=== PATIENT | female | born 1960 | race Caucasian/White ===

== ENCOUNTER → 2016-09-03 | Outpatient (CLI) | payer OTHER ==
--- NOTE | 2016-09-05 10:14 | MM ---
Reason for exam: screening (asymptomatic). Last mammogram was performed 1 year and 1 month ago. History: Patient is postmenopausal. Family history of breast cancer in mother at age 70. Benign left mammotome panel of the left breast, May 16, 2010. Physical Findings: A clinical breast exam by your physician is recommended on an annual basis and results should be correlated with mammographic findings. MG Screening Mammo w CAD Bilateral CC and MLO view(s) were taken. Prior study comparison: August 02, 2015, bilateral MG screening mammo w CAD. June 14, 2014, bilateral MG screening mammo w CAD. June 02, 2013, bilateral digital screening mammo w/CAD. May 14, 2012, CAD bilateral diagnostic mammogram. May 02, 2011, bilateral digital screening mammo w/CAD. There are scattered fibroglandular densities. Previous mammotome biopsy in the left breast. There is chronic nodularity in the left breast. No significant changes when compared with prior studies. ASSESSMENT: Negative, BI-RAD 1 RECOMMENDATION: Routine screening mammogram of both breasts in 1 year.
== END | disposition home or self-care (01) ==
LOC: RADMAMWWP 16:31
PROVIDERS: ATTEND Internal Medicine
DX: Z12.31 Encounter for screening mammogram for malignant neoplasm of breast (principal)

== ENCOUNTER 2016-10-27 10:37 | Observation (INO) | payer OTHER ==
[2016-10-27] MEDS ORDERED: SODIUM CHLORIDE 0.9% 1,000 ML IV STA (11:44)
[2016-10-27] MEDS ORDERED: NITROGLYCERIN OINT 1 INCH/GM PACKET TOPICAL STA (11:44)
[2016-10-27] MEDS ORDERED: MORPHINE SULFATE 2 MG/ML SYRINGE IVP STA (11:44)
[2016-10-27 12:39] LABS: Basophils % (A) 0 %; CH 31.8; CHCM 34.8; Eosinophils # (A) 0.2 k/uL (0-0.7); Eosinophils % (A) 2 %; HCT 40.5 % (34.0-46.0); HDW 2.59; HGB 13.7 gm/dL (11.4-16.0); Luc # (Auto) 0.22; Luc % (Auto) 2; Lymphocytes # (A) 1.9 k/uL (1.0-4.8); Lymphocytes % (A) 19 %; MCHC 33.8 g/dL (31.0-37.0); MCV 91.9 fL (80.0-100.0); Mean Platelet Volume 6.7; Monocytes # (A) 0.5 k/uL (0-1.0); Monocytes % (A) 5 %; Neutrophils # (A) 7.2 k/uL (1.3-7.7); Neutrophils % (A) 72 %; RBC 4.41 m/uL (3.80-5.40); RDW 13.1 % (11.5-15.5); WBC (Perox) 9.96
--- NOTE | 2016-10-27 12:48 | XR ---
EXAMINATION TYPE: XR chest 2V DATE OF EXAM: 10/27/2016 12:43 PM COMPARISON: NONE TECHNIQUE: PA and lateral views submitted. HISTORY: Chest pain FINDINGS: The lungs are clear and there is no pneumothorax, pleural effusion, or focal pneumonia. Heart demon strates borderline cardiac enlargement. IMPRESSION: 1. No acute process.
[2016-10-27 12:50] LABS: ALT 30 U/L (9-52); AST 18 U/L (14-36); Alkaline Phosphatase 88 U/L (38-126); Anion Gap 12 mmol/L; Blood Urea Nitrogen 19 mg/dL (7-17); Calcium 9.4 mg/dL (8.4-10.2); Carbon Dioxide 29 mmol/L (22-30); Chloride 102 mmol/L (98-107); Glucose 80 mg/dL (74-99); Non-African American GFR(MDRD) >60 (>60 ml/min/1.73 sqM); Potassium 4.5 mmol/L (3.5-5.1); Sodium 143 mmol/L (137-145); Total Bilirubin 0.9 mg/dL (0.2-1.3); Total Protein 6.8 g/dL (6.3-8.2)
[2016-10-27 12:56] LABS: Prothrombin Time 10.2 sec (9.0-12.0)
[2016-10-27 13:05] LABS: Creatine Kinase 45 U/L (30-135)
[2016-10-27 13:17] LABS: Creatine Kinase MB 0.3 ng/mL (0.0-2.4); Troponin I <0.012 ng/mL (0.000-0.034)
--- NOTE | 2016-10-27 14:55 | ED ---
Chest Pain HPI - General Chief Complaint: Chest Pain Stated Complaint: RT SIDE CHEST PAIN Time Seen by Provider: 10/27/16 11:44 Source: patient Mode of arrival: ambulatory Limitations: no limitations - History of Present Illness Initial Comments: 57 years old female complaining about the right-sided chest pain right now sided chest pain started about 2 PM yesterday and pain gets worse when she takes a deep breath she denies any fever no chills she is not coughing up any sputum she don't recall any trauma to the chest she denies any tobacco use no alcohol use either and the past medical history is unremarkable as well. Her both parents had heart disease and she she thinks mom had heart disease in her early 60s so her dad and chest pain right now is a 11/04 - Related Data Home Medications Medication Instructions Recorded Confirmed Atorvastatin [Lipitor] 10 mg PO DAILY 10/27/16 10/27/16 Calcium Carbonate [Tums] 500 mg PO ONCE PRN 10/27/16 10/27/16 Cholecalciferol [Vitamin D3] 1,000 unit PO DAILY 10/27/16 10/27/16 Loratadine [Claritin] 10 mg PO DAILY 10/27/16 10/27/16 Allergies Allergy/AdvReac Type Severity Reaction Status Date / Time Iodinated Contrast Media - Allergy Rash/Hives Verified 10/27/16 12:07 Oral and Review of Systems ROS Statement: Those systems with pertinent positive or pertinent negative responses have been documented in the HPI. ROS Other: All systems not noted in ROS Statement are negative. EKG Findings - EKG Comments: EKG Findings:: ekg is normal sinus, devious this EKG reveals some T-wave inversion and now V1 and V2 and V3 as well as V4 V5 and V6 no ST elevation noticed in any of the EKGs Past Medical History Past Medical History: No Reported History History of Any Multi-Drug Resistant Organisms: None Reported Past Surgical History: Section, Cholecystectomy, Orthopedic Surgery, Tonsillectomy, Tubal Ligation Past Psychological History: No Psychological Hx Reported Smoking Status: Never smoker Past Alcohol Use History: Occasional Past Drug Use History: None Reported General Exam - General Exam Comments Initial Comments: General: The patient is awake and alert, in no distress, and does not appear acutely ill. Skin: Skin is warm and dry and no rashes or lesions are noted. Eye: Pupils are equal, round and reactive to light, extra-ocular movements are intact; there is normal conjunctiva bilaterally. Ears, nose, mouth and throat: There are moist mucous membranes and no oral lesions. Neck: The neck is supple, there is no tenderness or JVD. Cardiovascular: There is a regular rate and rhythm. No murmur, rub or gallop is appreciated. Respiratory: To auscultation bilateral, no wheezing no rhonchi no distress respiratory zaragoza noticed Gastrointestinal: Soft, non-distended, non-tender abdomen without masses or organomegaly noted. There is no rebound or guarding present. Bowel sounds are unremarkable. Back: There is no tenderness to palpation in the midline. There is no obvious deformity. Musculoskeletal: Normal ROM, no tenderness, There is no pedal edema. There is no calf tenderness or swelling. No cords were appreciated. Neurological: CN II-XII intact, Cranial nerves III through XII are intact. There are no obvious motor or sensory deficits. Coordination appears grossly intact. Speech is normal. Psychiatric: Cooperative, appropriate mood & affect, normal judgment. Limitations: no limitations Course Vital Signs 10/27/16 10/27/16 10/27/16 10:44 12:39 14:42 Temperature 97.5 F L 98.1 F Pulse Rate 70 65 68 Respiratory 16 18 16 Rate Blood Pressure 131/78 123/72 129/70 O2 Sat by Pulse 98 96 97 Oximetry 10/27/16 16:32 Temperature Pulse Rate 68 Respiratory 18 Rate Blood Pressure 131/83 O2 Sat by Pulse 97 Oximetry Critical Care Time Total Critical Care Time: 45 Critical Care Time: The chest pain since 2 PM and had a pleuritic component to it though her CBC looks good d-dimer intoxicated troponin is within normal range with some T-wave inversion in lead V1 and V2 V3 V4 V5 and V6 him and considering all her risk factors I wouldn't heparinize her as she be admitted observation will be seen by air pollution engineer Disposition Clinical Impression: Chest pain, Pleuritic chest pain Disposition: ADMITTED IP TO THIS HOSP Condition: Good
[2016-10-27] MEDS ORDERED: MORPHINE SULFATE 2 MG/ML SYRINGE IVP PRN (17:23)
[2016-10-27] MEDS ORDERED: HEPARIN SODIUM,PORCINE 5,000 UNIT/ML 1 ML VIAL IV ONE (17:23)
[2016-10-27] MEDS ORDERED: NITROGLYCERIN SL TABS 0.4 MG TAB SUBLINGUAL PRN (17:23)
[2016-10-27] MEDS ORDERED: HEPARIN SODIUM,PORCINE/D5W PMX 25,000 UNIT in DEXTROSE/WATER 1 500ML.BAG IV SCH (17:30)
[2016-10-27 18:46] LABS: Creatine Kinase 41 U/L (30-135)
[2016-10-27 18:58] LABS: Creatine Kinase MB <0.2 ng/mL (0.0-2.4); Troponin I <0.012 ng/mL (0.000-0.034)
[2016-10-27 20:26] VITALS: BMI 35.6
[2016-10-27] MEDS ORDERED: ATORVASTATIN 40 MG TAB PO SCH (21:00)
[2016-10-28 00:40] LABS: Creatine Kinase 35 U/L (30-135)
[2016-10-28 00:54] LABS: Creatine Kinase MB <0.2 ng/mL (0.0-2.4); Troponin I <0.012 ng/mL (0.000-0.034)
[2016-10-28 07:49] LABS: Cholesterol 149 mg/dL (<200); HDL Cholesterol 50 mg/dL (40-60); Triglycerides 251 mg/dL (<150)
[2016-10-28] MEDS ORDERED: ASPIRIN 325 MG TAB PO SCH (09:00)
[2016-10-28] MEDS ORDERED: CHOLECALCIFEROL 1,000 UNIT TAB PO SCH (09:00)
[2016-10-28] MEDS ORDERED: LORATADINE 10 MG TAB PO SCH (09:00)
--- NOTE | 2016-10-28 12:55 | ECHOF ---
Referral Reason: MEASUREMENTS -------- HEIGHT: 160.0 cm WEIGHT: 91.2 kg BP: IVSd: 1.2 cm (0.6 - 1.1) LVIDd: 4.9 cm (3.9 - 5.3) LVPWd: 0.8 cm (0.6 - 1.1) IVSs: 2.0 cm LVIDs: 2.3 cm LVPWs: 1.9 cm Ao Diam: 2.9 cm (2.0 - 3.7) AV Cusp: 2.3 cm (1.5 - 2.6) LA Diam: 3.3 cm (2.7 - 3.8) MV EXCURSION: 15.249 mm (> 18.000) MV EF SLOPE: 119 mm/s (70 - 150) EPSS: 0.5 cm MV E Gen: 0.69 m/s MV DecT: 165 ms MV A Gen: 0.62 m/s MV E/A Ratio: 1.12 RAP: 5.00 mmHg RVSP: 10.93 mmHg FINDINGS -------- Sinus rhythm. This was a technically difficult study with suboptimal views. There is borderline concentric left ventricular hypertrophy. Overall left ventricular systolic function is normal with, an EF between 55 - 60 %. The right ventricle is normal in size and function. The left atrium is normal in size. The right atrium is normal in size. 1.5mg of Definity was utilized for enhancement of images The aortic valve is trileaflet, and appears structurally normal. No aortic stenosis or regurgitation. The mitral valve leaflets are mildly thickened. Mild mitral regurgitation is present. Mild tricuspid regurgitation present. The right ventricular systolic pressure, as measured by Doppler, is 10.93mmHg. Pulmonic valve appears structurally normal. The aortic root size is normal. The pericardium is normal. CONCLUSIONS -------- 1. Sinus rhythm. 2. The mitral valve leaflets are mildly thickened. 3. Mild mitral regurgitation is present. 4. Mild tricuspid regurgitation present. 5. The right ventricular systolic pressure, as measured by Doppler, is 10.93mmHg. 6. Pulmonic valve appears structurally normal. 7. The aortic root size is normal. 8. The pericardium is normal. 9. This was a technically difficult study with suboptimal views. 10. There is borderline concentric left ventricular hypertrophy. 11. Overall left ventricular systolic function is normal with, an EF between 55 - 60 %. 12. The right ventricle is normal in size and function. 13. The left atrium is normal in size. 14. The right atrium is normal in size. 15. 1.5mg of Definity was utilized for enhancement of images 16. The aortic valve is trileaflet, and appears structurally normal. No aortic stenosis or regurgitation. DAYCARE ASSISTANT: Mallorie Garcia RDCS
--- NOTE | 2016-10-28 14:26 | ECHOS ---
DATE OF SERVICE: 10/28/2016 AGE: 56Y SEX: F HT: 62" WT: 195 lbs. Protocol Primo: X Others: Stress Echo Stage: 3 Dur. of Exercise: 9:00 *Heart Rate Blood Pressure *Rest: 77 Rest: 117/38 * *Max. Achieved: 140 Maximum BP: 210/110 85% PMHR: 14 100% PMHR: 166 *METS: 10.1 INDICATIONS: Chest pain. MEDICATIONS: - Patient was exercised a total period of 9 minutes. A peak heart rate of 140 was achieved. Maximum blood pressure of 210/110 mmHg was noted. The patient did not complain of any chest pain during the test. Resting EKG shows normal sinus rhythm with normal OK interval and QRS duration and normal ST-T waves. No ST segment depression suggestive of ischemia is noted. Patient did not complain of any anginal pain during the test. The baseline echocardiographic images reveal a normal left ventricular chamber size with normal left ventricular systolic function. In the immediate postexercise period, normal increase in the wall thickness and contractility is noted. FINAL IMPRESSION: 1. This stress echocardiographic study is negative for stress-induced ischemia. 2. Patient's exercise tolerance is normal. 3. No dysrhythmias are noted.
--- NOTE | 2016-10-28 14:28 | CONS ---
DATE OF CONSULTATION: Mrs. Sanchez is a 56-year-old female with known history of hyperlipidemia, who presented with symptoms of chest discomfort. Discomfort with right-sided occurred at rest while she was in the car. Discomfort last for about 18 hours or so and worse when she took a deep breath or had palpation of the chest. She is usually active physically, used to be more active up to 2 years ago, but continues to be active without any symptoms of chest discomfort. She has no prior documented history of cardiac disease. She has no history of dizziness, palpitation. No dyspnea. No PND, orthopnea, or peripheral edema. Recurrence factors are negative for hypertension, diabetes or smoking. She has history of hyperlipidemia. Her medications at home include: 1. Omeprazole. 2. Claritin. 3. Lipitor 10 mg daily. REVIEW OF SYSTEMS: RESPIRATORY SYSTEM: She has no history of documented asthma, emphysema, bronchitis. GI system: She has a history of gastroesophageal reflux disease. No recent GI bleeding. system: No dysuria or hematuria. Nervous system: No stroke or seizure. PHYSICAL EXAMINATION: A 56-year-old female, alert, oriented, in no apparent distress. Blood pressure 104/50 with a heart rate in the 60s. HEAD: Normocephalic. EYES: Sclerae anicteric. NECK: Good upstroke. No bruit. No jugular venous distention. LUNGS: Clear to auscultation. HEART: Regular rate and rhythm. S1, S2, no S3, no S4. No murmur or rub. ABDOMEN: Soft, nontender, positive bowel sounds. No organomegaly. EXTREMITIES: No edema. Intact distal pulses. EKG reveals sinus mechanism with normal axis and intervals and nonspecific T wave inversion anteriorly. Troponin less than 0.015 for three samples. BUN and creatinine 19 and 0.67. Potassium of 4.5. Hemoglobin of 13.7. Chest x-ray shows no infiltrate. IMPRESSION: 1. Chest discomfort right-sided atypical for ischemic heart disease, appears to be pleuritic in origin. 2. Hyperlipidemia. RECOMMENDATIONS: I will stop the heparin. I will proceed with stress echocardiogram. If there is no evidence of abnormality, then no further cardiac work-up will be needed. Thank you for this consult. We will follow with you.
[2016-10-28 16:04] VITALS: BP 121/68; PULSE 75; RESP 18; TEMP 97.6
--- NOTE | 2016-10-29 07:10 | HP ---
HISTORY AND PHYSICAL/DISCHARGE SUMMARY DATE OF ADMISSION: Reason for admission is chest pain. HISTORY OF PRESENT ILLNESS: This is a 56-year-old female with no significant history of cardiac disease, comes into the hospital with sudden onset chest pain that is right-sided in location, pressure-like, reproducible with palpation, nonradiating, onset was while patient was riding as a passenger in their family car. Patient apparently had persistent pain for an entire day, hence came into the hospital for further evaluation. EKG did not reveal SVT wave changes. Cardiac enzymes x3 were negative. At the time of my evaluation, patient states that the chest pain has improved. However, continues to have it. Patient does not have any premature cardiac disease in her family history. Denies having any recent illnesses, travel history, urinary urgency or frequency, diarrhea, or abdominal pain, nausea, vomiting. MEDICATIONS INCLUDE: 1. Omeprazole. TUMS. 2. Vitamin D3. 3. Claritin. 4. Lipitor. Doses were appropriately reviewed and reconciliation on admission and discharge was done. PAST SURGICAL HISTORY: None reported. FAMILY HISTORY: As described above. SOCIAL HISTORY: Currently lives with her . Denies illicit drug use or alcohol use or tobacco use. PHYSICAL EXAM: Vitals include temperature 97.6, heart rate is 75, respiratory rate 18, blood pressure is 121/68. CHEST: There is reproducible chest pain on the right side with exacerbation with movement of the right shoulder is appreciated. S1, S2 heard. Regular rate and rhythm. No murmurs appreciated. GENERALLY: Patient appears to be alert, oriented x3. HEENT: The pupils are equal and reactive to light and accommodation. HEART: S1, S2 present. No murmur appreciated. ABDOMINAL EXAM: Soft, nontender, no organomegaly appreciated. GENITOURINARY: No Lala in place. EXTREMITIES: Pulses can be palpated distally. Denies any tenderness on gross palpation. SKIN: On a gross skin exam does not appear to have any purpura or any skin rashes that were noted. NEUROLOGICALLY: Grossly cranial nerves 2-12 intact. No motor or sensory deficits noted. Laboratory data include hemoglobin 13.7, hematocrit 40, platelets 266, sodium 143, potassium 4.2, chloride 102, bicarb 29, BUN 19, creatinine of 0.67. Cardiac enzymes x3 were negative. ASSESSMENT AND PLAN: 1. Atypical chest pain, likely musculoskeletal. 2. Dyslipidemia. 3. Vitamin D insufficiency. 4. Gastroesophageal reflux disease. PLAN: 1. Patient underwent an exercise stress test, was noted to have good exercise tolerance, was up to 9 minute on the Primo protocol. Stress test was negative. Echocardiogram revealed EF of 55%. No other abnormalities were reported. 2. Patient's pain is reproducible, hence it is likely musculoskeletal. Will discharge the patient home in a stable condition. The above findings were discussed with the patient. The patient is in agreement.
== END 2016-10-28 17:24 | disposition home or self-care (01) ==
LOC: EC 10:37 → 3OBS 17:23
PROVIDERS: ADMIT Internal Medicine; ATTEND Internal Medicine
DX: R07.89 Other chest pain (principal); Z82.49 Family history of ischemic heart disease and other diseases of the circulatory system; Z79.899 Other long term (current) drug therapy; Z91.041 Radiographic dye allergy status; E78.5 Hyperlipidemia, unspecified; E55.9 Vitamin D deficiency, unspecified; K21.9 Gastro-esophageal reflux disease without esophagitis
CPT/HCPCS: 96375 ×2; 96376 ×2; 96361 ×7; 99291 ×2; 36415; 93005; 93350; 93017; 93306; 85379; 80061; 80053; 82550 ×2; 82553 ×2; 83735; 84484 ×2; 85025; 85610; 85730 ×2; 71020; G0378 ×2; J1644 ×2; J2270; Q9957; 96365; 96366

== ENCOUNTER → 2017-09-11 | Outpatient (CLI) | payer OTHER ==
--- NOTE | 2017-09-15 08:38 | MM ---
Reason for exam: screening (asymptomatic). Last mammogram was performed 1 year ago. History: Patient is postmenopausal. Family history of breast cancer in mother at age 70. Benign left mammotome panel of the left breast, May 16, 2010. Physical Findings: A clinical breast exam by your physician is recommended on an annual basis and results should be correlated with mammographic findings. MG Screening Mammo w CAD Bilateral CC and MLO view(s) were taken. Prior study comparison: September 03, 2016, bilateral MG screening mammo w CAD. August 02, 2015, bilateral MG screening mammo w CAD. There are scattered fibroglandular densities. Previous mammotome biopsy in the left breast. There is chronic nodularity bilaterally. No significant changes when compared with prior studies. ASSESSMENT: Negative, BI-RAD 1 RECOMMENDATION: Routine screening mammogram of both breasts in 1 year.
== END | disposition home or self-care (01) ==
LOC: RADMAMWWP 07:37
PROVIDERS: ATTEND Internal Medicine
DX: Z12.31 Encounter for screening mammogram for malignant neoplasm of breast (principal)
CPT/HCPCS: 77067

== ENCOUNTER → 2018-03-17 | Outpatient (CLI) | payer OTHER ==
--- NOTE | 2018-03-18 07:56 | US ---
EXAMINATION TYPE: US Parotid DATE OF EXAM: 03/17/2018 COMPARISON: NONE CLINICAL HISTORY: R221 SWELLING MASS LUMP,D37.030 R PAROTID MASS. right parotid mass, growing over th e past 6 months, tender to touch 1.2 x 1.0 x 0.9cm cystic area seen within right parotid gland at area of palp. Patient scheduled for FNA 03/23/2018 Cystic focus shows increased through transmission, imperceptible wall, is anechoic. IMPRESSION: Cystic focus noted within the right parotid gland measuring 1 cm x 1.2 cm
== END | disposition home or self-care (01) ==
LOC: RADUSWWP 16:47
PROVIDERS: ATTEND Otolaryngology
DX: D37.030 Neoplasm of uncertain behavior of the parotid salivary glands (principal)
CPT/HCPCS: 76536

== ENCOUNTER 2018-03-23 08:39 | Day surgery (SDC) | payer OTHER ==
[2018-03-23 09:02] VITALS: BP 124/66; PULSE 64; RESP 20; TEMP 97.4
--- NOTE | 2018-03-23 16:17 | US ---
EXAMINATION TYPE: US fine needle aspiration DATE OF EXAM: 03/23/2018 HISTORY: Right neck mass. FINDINGS: Maximal barrier technique was utilized. The skin overlying a suitable path to the patient' s mass was localized with ultrasound and the overlying skin prepped and draped. Ultrasound was utili zed with sterile technique. Lidocaine was used for local anesthesia. A 23-gauge needle was advanced under direct ultrasound guidance and aspirated specimen obtained of the mass, jellylike clear materia l, less than 1 cc obtained. Specimen submitted in formalin to Pathology. Following the procedure, h emostasis achieved and the patient is discharged in stable condition without complication. Impression: status POST ULTRASOUND GUIDED CORE BIOPSY OF right neck MASS, PATHOLOGY IS PENDING. THIS PROCEDURE IS PERFORMED BY THE UNDERSIGNED.
== END 2018-03-23 10:40 | disposition home or self-care (01) ==
LOC: RADPROMAIN 08:39
PROVIDERS: ATTEND Otolaryngology
DX: R22.1 Localized swelling, mass and lump, neck (principal)
CPT/HCPCS: 10022; 76942; 88305

== ENCOUNTER → 2018-05-08 | Outpatient (CLI) | payer OTHER ==
--- NOTE | 2018-05-08 10:03 | US ---
EXAMINATION TYPE: US thyroid st tissue head/neck DATE OF EXAM: 05/08/2018 COMPARISON: US 03/17/2018, FNA 03/23/2018 CLINICAL HISTORY: D37.030 RT CYSTIC MASS. Hypoechoic area visualized with an echogenic center measuring 1.3 x 0.8 x 1.0 cm. There is posterior enhancement. A small amount of vascularity is visualized near the periphery CT neck with contrast could be performed if additional evaluation would be of benefit. IMPRESSION: Prominent appearing lymph node at the right neck at the palpable abnormality
== END ==
LOC: RADUSWWP 08:36
PROVIDERS: ATTEND Otolaryngology
DX: D37.030 Neoplasm of uncertain behavior of the parotid salivary glands (principal)
CPT/HCPCS: 76536

== ENCOUNTER → 2018-10-27 | Outpatient (CLI) | payer OTHER ==
--- NOTE | 2018-10-27 13:11 | MM ---
Reason for exam: screening (asymptomatic). Last mammogram was performed 1 year and 1 month ago. History: Patient is postmenopausal. Family history of breast cancer in mother at age 70. Benign left mammotome panel of the left breast, May 16, 2010. Physical Findings: A clinical breast exam by your physician is recommended on an annual basis and results should be correlated with mammographic findings. MG Screening Mammo w CAD Bilateral CC and MLO view(s) were taken. Prior study comparison: September 11, 2017, bilateral MG screening mammo w CAD. September 03, 2016, bilateral MG screening mammo w CAD. There are scattered fibroglandular densities. Previous mammotome biopsy in the left breast. No significant changes when compared with prior studies. ASSESSMENT: Benign, BI-RAD 2 RECOMMENDATION: Routine screening mammogram of both breasts in 1 year.
== END | disposition home or self-care (01) ==
LOC: RADMAMWWP 07:11
PROVIDERS: ATTEND Internal Medicine
DX: Z12.31 Encounter for screening mammogram for malignant neoplasm of breast (principal)
CPT/HCPCS: 77067

== ENCOUNTER → 2018-11-16 | Outpatient (CLI) | payer OTHER ==
--- NOTE | 2018-11-16 15:29 | US ---
EXAMINATION TYPE: US thyroid st tissue head/neck DATE OF EXAM: 11/16/2018 COMPARISON: NONE CLINICAL HISTORY: R22.1 R NECK MASS. Anechoic mass seen in left parotid gland with enhancement measuring 1.1 x 1.0 x 1.0cm. Seen on previ ous two ultrasounds. This appears more hypoechoic than previous. Fewer septations are evident. Palpable area inferior to chin also scanned. This is an echogenic area measuring 2.9 x 0.9 x 2.9 that appears to be a lipoma. IMPRESSION: Cystlike area within the left parotid region
== END | disposition home or self-care (01) ==
LOC: RADUSWWP 14:05
PROVIDERS: ATTEND Otolaryngology
DX: R22.1 Localized swelling, mass and lump, neck (principal)
CPT/HCPCS: 76536

== ENCOUNTER → 2020-02-11 | Outpatient (CLI) | payer OTHER ==
--- NOTE | 2020-02-11 15:42 | US ---
EXAMINATION TYPE: US thyroid st tissue head/neck DATE OF EXAM: 02/11/2020 COMPARISON: NONE CLINICAL HISTORY: K11.6 PAROTID CYST. Lump right parotid gland and under chin Anechoic area right parotid gland = 1.4 x 1.0 x 1.1cm as seen on prior exam. Isoechoic area noted at palpable at chin = 3.1 x 1.2 x 3.4cm, probable lipoma as on prior exam. This may be minimally larger measuring 2.9 x 0.9 x 2.9 cm previously. This is compared with 11/16/2018. Findings appear similar over the interval. If additional evaluation would be of benefit, CT soft tissue neck could be performed. IMPRESSION: 1. Cystlike area right parotid gland stable from comparison. 2. Suspected lipoma. There is some mild enlargement. Consider contrast MRI soft tissue neck for addit ional evaluation. Sarcoma is not excluded at this time.
== END | disposition home or self-care (01) ==
LOC: RADUSWWP 14:52
PROVIDERS: ATTEND Otolaryngology
DX: K11.1 Hypertrophy of salivary gland (principal); Z88.3 Allergy status to other anti-infective agents; Z88.1 Allergy status to other antibiotic agents; Z91.041 Radiographic dye allergy status
CPT/HCPCS: 76536

== ENCOUNTER → 2020-03-13 | Outpatient (CLI) | payer OTHER ==
--- NOTE | 2020-03-14 09:30 | MM ---
Reason for exam: screening (asymptomatic). Last mammogram was performed 1 year and 4 months ago. History: Patient is postmenopausal. Family history of breast cancer in mother at age 70. Benign left mammotome panel of the left breast, May 16, 2010. Physical Findings: A clinical breast exam by your physician is recommended on an annual basis and results should be correlated with mammographic findings. MG Screening Mammo w CAD Bilateral CC and MLO view(s) were taken. Prior study comparison: October 27, 2018, bilateral MG screening mammo w CAD. September 11, 2017, bilateral MG screening mammo w CAD. There are scattered fibroglandular densities. Previous mammotome biopsy in the left breast. There is chronic nodularity in the right breast. There is no new dominant lesion. Asymmetric breast tissue left breast, stable, posterior upper aspect. Benign prominent bilateral axillary lymph nodes redemonstrated. ASSESSMENT: Benign, BI-RAD 2 RECOMMENDATION: Routine screening mammogram of both breasts in 1 year.
== END | disposition home or self-care (01) ==
LOC: RADMAMWWP 07:35
PROVIDERS: ATTEND Internal Medicine
DX: Z12.31 Encounter for screening mammogram for malignant neoplasm of breast (principal)
CPT/HCPCS: 77067

== ENCOUNTER → 2020-12-05 | Outpatient (CLI) | payer OTHER ==
--- NOTE | 2020-12-06 07:13 | US ---
EXAMINATION TYPE: US thyroid st tissue head/neck DATE OF EXAM: 12/05/2020 COMPARISON: Multiple US's CLINICAL HISTORY: K11.8 Parotid Mass. F/U right parotid palpable mass Cystic lesion right parotid gland appears similar to previous, size= 1.5 x 1.0 x 1.2 cm/ Prior yenifer surement= 1.4 x 1.0 x 1.1 cm IMPRESSION: Stable cystic lesion of the right parotid gland.
== END | disposition home or self-care (01) ==
LOC: RADUSWWP 16:05
PROVIDERS: ATTEND Otolaryngology
DX: K11.6 Mucocele of salivary gland (principal)
CPT/HCPCS: 76536

== ENCOUNTER → 2021-04-25 | Outpatient (CLI) | payer OTHER ==
--- NOTE | 2021-04-30 10:19 | MM ---
Reason for exam: screening (asymptomatic). Last mammogram was performed 1 year and 1 month ago. History: Patient is postmenopausal. Family history of breast cancer in mother at age 70. Benign left mammotome panel of the left breast, May 16, 2010. Physical Findings: A clinical breast exam by your physician is recommended on an annual basis and results should be correlated with mammographic findings. MG Screening Mammo w CAD Bilateral CC and MLO view(s) were taken. Prior study comparison: March 13, 2020, bilateral MG screening mammo w CAD. October 27, 2018, bilateral MG screening mammo w CAD. September 11, 2017, bilateral MG screening mammo w CAD. There are scattered fibroglandular densities. Previous mammotome biopsy in the left breast. There is chronic nodularity in the right posterior upper outer quadrant. No significant changes when compared with prior studies. ASSESSMENT: Benign, BI-RAD 2 RECOMMENDATION: Routine screening mammogram of both breasts in 1 year.
== END | disposition home or self-care (01) ==
LOC: RADMAMWWP 13:28
PROVIDERS: ATTEND Internal Medicine
DX: Z12.31 Encounter for screening mammogram for malignant neoplasm of breast (principal); Z80.3 Family history of malignant neoplasm of breast
CPT/HCPCS: 77067

== ENCOUNTER → 2022-04-30 | Outpatient (CLI) | payer OTHER ==
--- NOTE | 2022-05-01 19:19 | MM ---
Reason for Exam: Screening (asymptomatic). Last mammogram was performed 1 year(s) and 1 month(s) ago. Patient History: Menarche at age 17. First Full-Term at age 20. Postmenopausal. 05/16/2010, Benign Core Biopsy on the left side. Mother had breast cancer, age 70. Risk Values: Keesha 5 year model risk: 2.9%. NCI Lifetime model risk: 14.2%. Prior Study Comparison: 10/27/2018 Bilateral Screening Mammogram, [facility]. 03/13/2020 Bilateral Screening Mammogram, [facility]. 04/25/2021 Bilateral Screening Mammogram, [facility]. Tissue Density: There are scattered fibroglandular densities. Findings: Analyzed By CAD. Core marker is in the left breast. No suspicious groups of microcalcifications, spiculated or lobular masses, architectural distortion or other secondary signs of malignancy are mammographically apparent. Overall Assessment: Benign, BI-RAD 2 Management: Screening Mammogram of both breasts in 1 year. A negative mammogram report should not preclude additional follow up of suspicious palpable abnormalities. Patient should continue monthly self breast exam. A clinical breast exam by your physician is recommended on an annual basis and results should be correlated with mammographic findings. Electronically signed and approved by: Faraz Mclain D.O. Radiologis
== END | disposition home or self-care (01) ==
LOC: RADMAMWWP 07:59
PROVIDERS: ATTEND Obstetrics & Gynecology
DX: Z12.31 Encounter for screening mammogram for malignant neoplasm of breast (principal)
CPT/HCPCS: 77063; 77067

== ENCOUNTER → 2023-02-05 | Outpatient (CLI) | payer OTHER ==
--- NOTE | 2023-02-06 08:05 | US ---
EXAMINATION TYPE: US thyroid st tissue head/neck DATE OF EXAM: 02/05/2023 COMPARISON: Most recent: 12/05/20 CLINICAL INDICATION: Female, 62 years old with history of R22.1 LOCALIZED SWELLING, MASS AND LUMP, NE CK; Lump on right side of neck x at least 5 years FINDINGS/IMPRESSION: An avascular cystic lesion is seen in the right parotid gland measuring 1.6 x 1.3 x 1.2cm. Previously measured 1.5 x 1.0 x 1.2 cm. This is stable from prior examination. No definitive mural nodularity.
== END | disposition home or self-care (01) ==
LOC: RADUSWWP 15:59
PROVIDERS: ATTEND Internal Medicine
DX: K11.8 Other diseases of salivary glands (principal); R22.1 Localized swelling, mass and lump, neck
CPT/HCPCS: 76536

== ENCOUNTER → 2023-03-19 | Day surgery (SDC) | payer OTHER ==
[2023-03-14 15:49] VITALS: BMI 36.6
[~2023-03-19] MED LIST: LACTATED RINGERS 1,000 ML IV SCH; LIDOCAINE 2% INJ 20 MG/ML (2 ML VIAL) ONE; PROPOFOL 10 MG/ML 20 ML VIAL IV ONE
[2023-03-19 07:06] VITALS: TEMP 97.2
--- NOTE | 2023-03-19 08:09 | P.PCN ---
Date of Procedure: 03/19/23 Procedure(s) Performed: Brief history: Patient is a pleasant 62-year-old white female scheduled for an elective upper endoscopy as well as colonoscopy as a part of evaluation of sent history of GERD and screening for colon cancer/family history of colon cancer diagnosed in her father at age 60. Procedure performed: Esophagogastroduodenoscopy with biopsy Colonoscopy Preoperative diagnosis: GERD Screening for colon cancer/family history of colon Anesthesia: MAC Procedure: After informed consent was obtained from the patient was brought into the endoscopy unit and IV sedation was administered by anesthesia under continuous monitoring. Initially upper endoscopy was done. The Olympus GF 160 video endoscope was inserted inserted into the mouth and esophagus intubated without any difficulty and was gradually advanced into the stomach and duodenum and carefully examined. The bulb and second part of the duodenum appeared normal. The scope was then withdrawn into the stomach adequately insufflated with air and upon careful examination the antrum had mild antral gastritis and biopsies were done from this area. Mucosa of the body, cardia and fundus appeared normal. The scope was then withdrawn into the esophagus. small hiatal hernia noted. The GE junction was located at 40 cm to the incisors. It appeared regular withwith superficial erosions consistent with LA grade B reflux esophagitis. Rest of esophagus appeared normal and the patient tolerated the procedure well. Tt this time the patient continued to remain sedation. Initial digital rectal examination was normal. Olympus CF 160 video colonoscope was then inserted into the rectum and gradually advanced to the cecum without any difficulty. Careful examination was performed as the scope was gradually being withdrawn. The prep was excellent. The cecum, ascending colon, transverse colon, descending colon, sigmoid colon and rectum appeared normal. Retroflexion was performed in the rectum and no lesions were noted. Patient tolerated the procedure well. Impression: 1.. Upper Endoscopy revealed mild antral gastritis, small hiatal hernia and LA grade B reflux esophagitis 2. Colonoscopy was within normal limits with no evidence of colorectal neoplasia Recommendations: Findings of this examination were discussed with the patient as well as her family. She was advised to use [id number] Pepcid 20 mg twice daily and follow antireflux measures. Recommend a repeat screening colonoscopy in 5 years because of the family history of colon cancer
[2023-03-19 08:16] VITALS: RESP 16
[2023-03-19 08:37] VITALS: BP 141/77; PULSE 66
== END ==
LOC: ORWHC2ENDO 06:29
PROVIDERS: ATTEND Internal Medicine Gastroenterology
DX: Z12.11 Encounter for screening for malignant neoplasm of colon (principal); K21.00 Gastro-esophageal reflux disease with esophagitis, without bleeding; K44.9 Diaphragmatic hernia without obstruction or gangrene; K29.50 Unspecified chronic gastritis without bleeding; E78.5 Hyperlipidemia, unspecified; Z88.1 Allergy status to other antibiotic agents; Z90.89 Acquired absence of other organs; Z79.899 Other long term (current) drug therapy; Z80.0 Family history of malignant neoplasm of digestive organs; Z79.82 Long term (current) use of aspirin; Z91.041 Radiographic dye allergy status; Z98.890 Other specified postprocedural states
CPT/HCPCS: 88305; 88342; 45378; 43239; J2704; J2001

== ENCOUNTER → 2023-05-01 | Outpatient (CLI) | payer OTHER ==
--- NOTE | 2023-05-02 09:21 | MM ---
Reason for Exam: Screening (asymptomatic). Last screening mammogram was performed 12 month(s) ago. Patient History: Menarche at age 17. First Full-Term at age 20. Postmenopausal. 05/16/2010, Benign Core Biopsy on the left side. Mother had breast cancer, age 70. Risk Values: Keesha 5 year model risk: 3.0%. NCI Lifetime model risk: 13.8%. Prior Study Comparison: 03/13/2020 Bilateral Screening Mammogram, [facility]. 04/25/2021 Bilateral Screening Mammogram, [facility]. 04/30/2022 Bilateral MG 3D screening mammo w/cad, [facility]. Tissue Density: The breast tissue is heterogeneously dense. This may lower the sensitivity of mammography. Findings: Analyzed By CAD. There is no suspicious group of microcalcifications or new suspicious mass in either breast. Overall Assessment: Benign, BI-RAD 2 Management: Screening Mammogram of both breasts in 1 year. . Patient should continue monthly self-breast exams. A clinical breast exam by your physician is recommended on an annual basis. This exam should not preclude additional follow-up of suspicious palpable abnormalities. Note on Keesha scores and lifetime risk: 1. A Keesha score greater than 3% is considered moderate risk. If this is the case, consider specialist referral to assess eligibility for a risk reducing agent. 2. If overall lifetime risk for the development of breast cancer is 20% or higher, the patient may qualify for future screening with alternating mammogram and breast MRI. Electronically signed and approved by: Rachid Mays M.D. Radiologis
== END | disposition home or self-care (01) ==
LOC: RADMAMWWP 07:57
PROVIDERS: ATTEND Internal Medicine
DX: Z12.31 Encounter for screening mammogram for malignant neoplasm of breast (principal); Z78.0 Asymptomatic menopausal state; Z80.3 Family history of malignant neoplasm of breast
CPT/HCPCS: 77067

== ENCOUNTER → 2023-05-30 | Outpatient (CLI) | payer OTHER ==
[2023-05-30 12:59] LABS: Basophils % (A) 0 %; Eosinophils % (A) 0 %; HCT 42.5 % (34.0-46.0); HGB 14.6 gm/dL (11.4-16.0); Lymphocytes # (A) 0.9 k/uL (1.0-4.8); Lymphocytes % (A) 10 %; MCHC 34.3 g/dL (31.0-37.0); MCV 93.4 fL (80.0-100.0); Mean Platelet Volume 7.4; Monocytes # (A) 0.1 k/uL (0-1.0); Monocytes % (A) 1 %; Neutrophils # (A) 8.7 k/uL (1.3-7.7); Neutrophils % (A) 89 %; Platelet Count 299 k/uL (150-450); RBC 4.56 m/uL (3.80-5.40); RDW 12.9 % (11.5-15.5); WBC 9.8 k/uL (3.8-10.6)
[2023-05-30 13:12] LABS: ALT 29 U/L (4-34); AST 24 U/L (14-36); African American GFR (CKD) >90 (>60 ml/min/1.73 sqM); Albumin 4.2 g/dL (3.5-5.0); Albumin/Globulin Ratio 1.4; Alkaline Phosphatase 74 U/L (38-126); Anion Gap 11 mmol/L; Bilirubin,Unconjugated 0.4 mg/dL (0.0-1.1); Blood Urea Nitrogen 14 mg/dL (7-17); Calcium 9.4 mg/dL (8.4-10.2); Carbon Dioxide 24 mmol/L (22-30); Chloride 105 mmol/L (98-107); Globulin 3.1 g/dL; Glucose 178 mg/dL (74-99); Lipase 62 U/L (23-300); Non-African American GFR(CKD) >90 (>60 ml/min/1.73 sqM); Potassium 4.2 mmol/L (3.5-5.1); Sodium 140 mmol/L (137-145); Total Bilirubin 0.5 mg/dL (0.2-1.3); Total Protein 7.3 g/dL (6.3-8.2)
--- NOTE | 2023-05-30 13:51 | CT ---
EXAMINATION TYPE: CT abdomen pelvis w con DATE OF EXAM: 05/30/2023 COMPARISON: 09/29/2015 HISTORY: left sided abdominal pain CT DLP: 1719 mGycm Automated exposure control for dose reduction was used. CONTRAST: CT scan of the abdomen pelvis is performed with IV Contrast, patient injected with 100 mL of Isovue 3 00. FINDINGS- LUNG BASES- bilateral subsegmental consolidation atelectasis. 5 mm subpleural nodule right middle lo be image 6 retrospectively stable therefore benign. Mild cardiomegaly. LIVER/GB- diffuse low attenuation throughout the liver compatible with hepatic stenosis. No focal h epatic mass. Liver is prominent in size measuring 18 cm compatible with hepatomegaly. PANCREAS- No gross abnormality is seen. SPLEEN- No gross abnormality is seen. ADRENALS- No gross abnormality is seen. KIDNEYS/BLADDER-no hydronephrosis. There is multiple fluid attenuating lesions in the left kidney com patible with Bosniak classification 1 simple cyst. BOWEL- there is a segment of wall thickening involving the distal ileum extending to the ileocecal v alve suggestive of ileitis. Appendix normal. No significant inflammatory changes. Mild changes of div erticulosis. No CT evidence of diverticulitis. LYMPH NODES- No greater than 1cm abdominal or pelvic lymph nodes are appreciated. OSSEOUS STRUCTURES- multilevel hypertrophic and degenerative change of the spine. OTHER- uterus is somewhat unusual morphology. Small fat-containing left inguinal hernia. Bladder nor mal. No free fluid or free air. Aorta normal caliber. Fat-containing anterior abdominal wall periumbi lical hernia. IMPRESSION- 1. There is a long segmental area of wall thickening involving the distal ileum extending to the leve l of the terminal ileum. No surrounding inflammatory changes. Findings may represent a chronic termin al ileitis\inflammatory bowel disease. Correlation with small bowel follow-through could be obtained as clinically warranted. 2. Mild diverticulosis. 3. Atypical uterine morphology recommend pelvic ultrasound to assess for uterine fibroid.
== END | disposition home or self-care (01) ==
LOC: RADCTMAIN 11:58
PROVIDERS: ATTEND Internal Medicine
DX: K57.30 Diverticulosis of large intestine without perforation or abscess without bleeding (principal); N85.8 Other specified noninflammatory disorders of uterus; K63.89 Other specified diseases of intestine
CPT/HCPCS: 80053; 82248; 83690; 85025; 74177; 36415; Q9967